=== PATIENT | male | born 1970 | race African-American/Black ===

== ENCOUNTER 2023-09-07 23:12 | Emergency (ER) | payer MEDICAID ==
[~2023-09-07] VITALS: Ht 172.7 cm; Wt 95.0 kg
[2023-09-07 23:31] VITALS: O2SAT 97
[2023-09-08] MEDS: ONDANSETRON 4MG ODT PO STA (00:42)
[2023-09-08] MEDS: HYDROCODONE/ACETAMINOPHEN 5/325MG TABLET PO ONE (00:56)
[2023-09-08 02:15] LABS: CLARITY URINE CLEAR (CLEAR); COLOR URINE YELLOW (YELLOW); GLUCOSE URINE 3+ (NEGATIVE); KETONES URINE 1+ (NEGATIVE); LEUKOCYTE ESTERASE URINE NEGATIVE (NEGATIVE); NITRITE URINE NEGATIVE (NEGATIVE); OCCULT BLOOD URINE NEGATIVE (NEGATIVE); PROTEIN URINE NEGATIVE (NEGATIVE); SPECIFIC GRAVITY URINE 1.048 (1.005-1.030)
[2023-09-08 02:31] LABS: BACTERIA URINE NONE SEEN; RBC URINE NONE SEEN /hpf (0-2); SQUAMOUS EPITHELIAL CELL URINE NONE SEEN /lpf (RARE/1+); WBC URINE NONE SEEN /hpf (0-2)
[2023-09-08] MEDS ORDERED: HYDR-4001 MT (02:51)
[2023-09-08 03:13] VITALS: BP 124/79; PULSE 89; RESP 16; TEMP 98.3
== END 2023-09-08 03:33 | disposition home or self-care (01) ==
LOC: ER 23:12
DX: S32.009A Unspecified fracture of unspecified lumbar vertebra, initial encounter for closed fracture (principal); E11.9 Type 2 diabetes mellitus without complications; X58.XXXA Exposure to other specified factors, initial encounter; Y93.89 Activity, other specified; Y92.89 Other specified places as the place of occurrence of the external cause; Y99.8 Other external cause status
CPT/HCPCS: 99285; 81003; 72131; Q0162; Z7610